=== PATIENT | female | born 1975 | race Caucasian/White ===

== ENCOUNTER 2018-10-22 21:46 | Emergency (ER) | payer OTHER ==
[~2018-10-22] VITALS: Ht 172.7 cm; Wt 65.3 kg
[~2018-10-22 21:46] MED LIST: BEN20 PO; CIPROFLOXACIN500 MG PO; DIPHENOX/ATROPI1 TA1 PO; LAC PO; NITROSTAT0.4 MG SL; PANTOPRAZOLE SO40 M1 PO; RESTORIL30 MG PO; XANAX0.5 MG PO; ZOFRAN ODT8 MG PO; ZOLOFT50 MG PO
[2018-10-23 01:26] VITALS: BP 110/57
== END 2018-10-23 01:26 | disposition home or self-care (01) ==
LOC: ED 21:46
DX: S01.511A Laceration without foreign body of lip, initial encounter (principal); F41.9 Anxiety disorder, unspecified; Z85.038 Personal history of other malignant neoplasm of large intestine; Z98.51 Tubal ligation status; Y99.8 Other external cause status; Y93.89 Activity, other specified; Y92.89 Other specified places as the place of occurrence of the external cause; W50.0XXA Accidental hit or strike by another person, initial encounter
CPT/HCPCS: J1885; J2001